=== PATIENT | male | born 1960 | race African-American/Black ===

== ENCOUNTER 2017-02-14 03:32 | Emergency (ER) | payer MEDICARE ==
[~2017-02-14] VITALS: Ht 185.4 cm; Wt 72.6 kg
[2017-02-14 03:40] VITALS: BP 149/85
[2017-02-14] MEDS ORDERED: FLUCONAZOLE 100 MG TABLET. PO ONE (03:45)
[2017-02-14] MEDS ORDERED: NYST100054 PO (03:55)
[2017-02-14] MEDS ORDERED: FLUC150T PO (03:55)
--- NOTE | 2017-02-14 03:55 | PHYS DOC ---
Past Medical History Past Medical History: No Pertinent History Additional Past Surgical Histo: left foot Smoking: Cigarettes Alcohol Use: Rarely Adult General Chief Complaint Chief Complaint: SORE THROAT HPI HPI Patient is a 56 year old male who presents with painful swallowing and sore throat. No fever. No cough. Started yesterday. No recent antibiotic use. He has no home meds. He smokes tobacco. No recent travel. Review of Systems Review of Systems Constitutional: Denies fever or chills Eyes: Denies change in visual acuity, redness, or eye pain HENT: Denies nasal congestion; POS sore throat Respiratory: Denies cough or shortness of breath Cardiovascular: No chest pain GI: Denies abdominal pain, nausea, vomiting, bloody stools or diarrhea : Denies dysuria or hematuria Musculoskeletal: Denies back pain or joint pain Integument: Denies rash or skin lesions Neurologic: Denies headache, focal weakness or sensory changes Current Medications Current Medications Current Medications Medications (Trade) Dose Ordered Sig/Nadiya Start Time Stop Time Status Last Admin Dose Admin Fluconazole (Diflucan) 100 mg 1X ONCE 02/14/17 03:45 02/14/17 03:53 DC 02/14/17 03:52 100 MG Nystatin 5 ml [id number] 02/14/17 04:00 Allergies Allergies Allergies Coded Allergies Type Severity Reaction Last Updated Verified No Known Drug Allergies 02/14/17 No Physical Exam Physical Exam Constitutional: Well developed, well nourished, no acute distress, non-toxic appearance. HENT: Normocephalic, atraumatic, TM clear bilatearlly; bilateral external ears normal, oropharynx moist, Post pharynx erythematous; white cheese-like clusters on uvula with erythematous uvula. mild edema, nose normal. No drooling Eyes: PERRLA, EOMI, conjunctiva normal, no discharge. Neck: Normal range of motion, no tenderness, supple, no stridor. Cardiovascular:Heart rate regular rhythm, no murmur Lungs & Thorax: Bilateral breath sounds clear to auscultation Abdomen: Bowel sounds normal, soft, no tenderness, no masses, no pulsatile masses. Skin: Warm, dry, no erythema, no rash. Back: No tenderness, no CVA tenderness. Extremities: No tenderness, no cyanosis, no clubbing, ROM intact, no edema. Neurologic: Alert and oriented X 3, normal motor function, normal sensory function, no focal deficits noted. Psychologic: Affect normal, judgement normal, mood normal. Current Patient Data Vital Signs Vital Signs Date Time Temp Pulse Resp B/P (MAP) Pulse Ox O2 Delivery O2 Flow Rate FiO2 02/14/17 03:40 98.7 99 16 95 Room Air 98.7 Course & Med Decision Making Course & Med Decision Making Evaluated patient. Findings c/w monilial infection. Unclear as he has no pre- existing medical conditions or known immunocompromised state. No recent antibiotic use. Dosed here with Diflucan po and nystatin S/S. Will need to continue nystatin and will have him repeat Diflucan in one week. he needs follow up and referral given to patient. HE HAS NO AIRWAY COMPROMISE AT THIS TIME Dragon Disclaimer Dragon Disclaimer This electronic medical record was generated, in whole or in part, using a voice recognition dictation system. Departure Departure Impression: Primary Impression: Stomatitis monilial Additional Impression: Disorder of uvula Disposition: HOME, SELF-CARE Condition: STABLE Referrals: NON,STAFF (PCP) Patient Instructions: Stomatitis Additional Instructions: YOU HAVE A YEAST INFECTION IN THE BACK OF YOUR THROAT. YOU WERE GIVEN MEDICATION HERE TONIGHT. YOU NEED FOLLOW UP THIS CAN WORSEN. YOU ALSO NEED TO DETERMINE IF YOU HAVE UNDERLYING MEDICAL CONDITIONS THAT MAY BE CAUSING THIS (DIABETES, ETC). YOU WERE GIVEN A SHEET OF PHYSICIANS TO FOLLOW UP WITH. REPEAT THE DIFLUCAN TABLET NEXT WEEK ON FRIDAY. USE THE NYSTATIN SWISH AND SWALLOW DIRECTED [facility] Nystatin (NYSTATIN) 100,000 Unit/1 Ml Oral.susp 5 ML PO QID, #200 ML Prov: JENAE TOLENTINO MD 02/14/17 Fluconazole (DIFLUCAN) 150 Mg Tablet 1 TAB PO ONCE, #1 TAB 1 Refill TAKE ON Friday02/21/17 Prov: JENAE TOLENTINO MD 02/14/17 Problem Qualifiers JENAE TOLENTINO MD Feb 14, 2017 03:55
[2017-02-14] MEDS ORDERED: NYSTATIN 100,000 UNITS/ML 5 ML ORAL.SUSP. SWSW SCH (04:00)
== END 2017-02-14 04:04 | disposition home or self-care (01) ==
LOC: ER 03:32
DX: B37.0 Candidal stomatitis (principal); K13.79 Other lesions of oral mucosa; F17.210 Nicotine dependence, cigarettes, uncomplicated
CPT/HCPCS: 99283